=== PATIENT | female | born 1945 | race Caucasian/White ===

== ENCOUNTER → 2017-07-10 | Outpatient (CLI) | payer MEDICARE, BC ==
--- NOTE | 2017-07-11 21:22 | PE ---
EXAMINATION TYPE: PET CT fusion skull to thigh DATE OF EXAM: 07/10/2017 CLINICAL HISTORY: 72-year-old female solitary pulmonary nodule. Patient status post left lung biopsy on 07/20/2017. TECHNIQUE: Following the intravenous administration of 11.8 mCi of F-18 FDG, whole body images are performed from the skull base to the midthigh. Images are reviewed on the computer in the coronal, a xial, and sagittal planes. Reconstructed rotating images are created on independent workstation and reviewed on the computer. A localization and attenuation correction CT is performed in conjunction with the PET scan. Glucose level: 103 mg/dL dose: 11.82 mCi CTDI: 2.66 mGy DLP: 236.61 mGy-cm COMPARISON: None. FINDINGS: PET: Physiologic FDG uptake within the neck with scattered mild muscular activity. 2 foci of moderate FDG uptake are present at the left hilum suggestive of ipsilateral hilar metastati c lymph nodes. Max SUV 4.9. Abnormal pleural-based soft tissue density measuring 2.1 cm peripheral left upper lobe shows intense FDG uptake, max SUV 13.9. There is a second pleural-based posterior left mid lung measures 4.6 x 2.0 cm, max SUV 15.7. Dominant peripheral left lower lobe measures 7.3 x 4.9 cm prominently abutting the pleural surface an d showing an area of central photopenia suggesting central necrosis, max SUV 20.1. The final lesion is also subpleural nodule posterior left base measuring 1.2 cm, max SUV 6.9. ATTENUATION CORRECTION CT: Visualized paranasal sinuses and mastoid air cells appear clear. No cervical lymphadenopathy seen. Heart is borderline enlarged. Mild coronary vessel calcifications are present. Ascending aorta is ec tatic at 3.8 cm. Conventional arch vessel branching anatomy. Borderline to enlarged caliber to the ri ght and left pulmonary arteries and 2.5 and 2.9 cm, respectively, suggesting underlying pulmonary art erial hypertension. Moderate to advanced centrilobular emphysema. No pleural effusion. Calcified right bronchial and rig ht lower lobe nodules compatible prior granulomatous disease. Numerous calcified granulomas within the spleen. 1.6 cm gallstone. No dilated small bowel, free fluid , or free air. No mesenteric or retroperitoneal lymphadenopathy identified. Sigmoid diverticulosis wi thout pericolonic inflammatory change. Bladder is nondistended. Prostate gland measures 4.3 cm wide. No abnormal fluid collection in the pel vis or pelvic lymphadenopathy seen. Bones: Gentle dextroconvex curvature of the lumbar spine. No osseous destructive process identified i n IMPRESSION: 1. Dominant 7.3 cm intensely hypermetabolic, centrally necrotic left lower lobe mass prominently abut ting the pleural surface. 2. 3 ipsilateral satellite nodules/masses are present measuring up to 4.6 cm, one located within the left upper lobe. 3. Two metastatic left hilar lymph nodes. 4. No other metastatic disease. 5. Incidental: Advanced COPD with pulmonary arterial hypertension, prior granulomatous disease, alex lithiasis, and sigmoid diverticulosis.
== END | disposition home or self-care (01) ==
LOC: RADPETMAIN 10:33
PROVIDERS: ATTEND Internal Medicine Critical Care Medicine
DX: R91.8 Other nonspecific abnormal finding of lung field (principal)
CPT/HCPCS: 78815; A9552

== ENCOUNTER → 2017-08-02 | Outpatient (CLI) | payer MEDICARE, BC ==
--- NOTE | 2017-08-02 23:16 | MR ---
EXAMINATION TYPE: MR brain wo/w con DATE OF EXAM: 08/02/2017 COMPARISON: NONE HISTORY: Headaches, lung ca TECHNIQUE: Multiplanar, multisequence images of the brain and brainstem is performed without and with IV contras t, utilizing 6 mL intravenous Gadavist . FINDINGS: Diffusion weighted images demonstrate no evidence of a recent infarct or other diffusion ab normality. There is no worrisome extra-axial fluid collection. There is septum pellucidum vergae not ed. There is ventricular and sulcal prominence consistent with diffuse cerebral atrophy. There are fo leti and confluent areas of T2 hyperintensity seen throughout the deep and periventricular white matte r. Lesions are nonspecific in appearance and distribution most likely on basis of product of chronic small vessel ischemic change in patient of this age. Midline structures demonstrate normal morphology. The craniocervical junction appears within normal limits. Post contrast images demonstrate enhancing oval-shaped lesion measuring 9 x 7 mm left fronta l lobe at level of centrum semiovale on axial image 22 with surrounding vasogenic edema consistent wi th metastatic focus given patient history. Lesion is best seen on coronal image 12 and sagittal image 48. No additional enhancing lesions are present. The dural venous sinuses appear patent. The visuali zed sinuses are clear and the globes are intact. IMPRESSION: 1. Homogeneous intraparenchymal enhancing 9 mm lesion left frontal lobe felt to reflect metastatic fo cus given patient history. Surrounding vasogenic edema noted. 2. There is background mild to moderate diffuse cerebral atrophy and advanced chronic small vessel is chemic change noted.
== END | disposition home or self-care (01) ==
LOC: RADMRIMAIN 16:51
PROVIDERS: ATTEND Internal Medicine Hematology & Oncology
DX: G93.6 Cerebral edema (principal); G31.9 Degenerative disease of nervous system, unspecified; I67.82 Cerebral ischemia; C34.32 Malignant neoplasm of lower lobe, left bronchus or lung
CPT/HCPCS: 70553; A9581

== ENCOUNTER → 2017-09-24 | Outpatient (CLI) | payer MEDICARE, BC ==
[2017-09-24 11:29] LABS: Blood Urea Nitrogen 19 mg/dL (7-17)
--- NOTE | 2017-09-24 14:26 | CT ---
EXAMINATION TYPE: CT ChestAbdPelvis w con DATE OF EXAM: 09/24/2017 COMPARISON: 07/20/2017 and 07/10/2017 HISTORY: Lung CA CT DLP: 519.4 mGycm. Automated Exposure Control for Dose Reduction was Utilized. CONTRAST: CT scan of the thorax, abdomen and pelvis is performed with IV Contrast, patient injected with 100 mL of Omnipaque 300. FINDINGS: LUNGS: There is interval growth of the left pleural-based mass lining the left upper lobe on series 3 image 26 measuring 3.8 x 2.1 cm with erosion of the adjacent lateral margin of the fifth rib. This p reviously measured 2.1 x 1.5 cm on the exam of 2417 the smallest pleural-based mass at the left lung base on image 57 has also increased in the interim now measuring 2.9 x 1.8 cm and previously measurin g up to 1.6 cm. The dominant mass measures approximately 8.2 x 5.6 cm and previously measured 6.6 x 6 .1 cm. This contains numerous areas of low density internally representing necrosis. There is also er osion of the adjacent ninth and eighth posterior lateral ribs. There is extent into the left hilar re gion on image 40 with a soft tissue attenuated area measuring 3.6 x 4.2 cm. Contiguous with this more superiorly but measured as a separate mass on the prior exam there is another pleural-based mass kelly suring 5.9 x 2.1 cm. Findings are superimposed upon extensive centrilobular emphysematous changes with numerous areas of p leural-parenchymal scarring. Within the right upper lobe there is also a new pulmonary nodule measuri ng 4 mm on series 4 image 24. Nodular biapical pleural-parenchymal scarring is also seen, similar to the prior exam. Multiple hilar granulomas are noted. Right lower lobe granulomas are also seen, benig n. Additionally there is a trace left pleural effusion. MEDIASTINUM: The largest left hilar node measures 1.0 cm in short axis. Aorticopulmonary window lymph node measures 1.2 cm in short axis. No axillary adenopathy. Right mainstem pulmonary artery is again noted to be enlarged measuring up to 2.8 cm suggesting underlying pulmonary arterial hypertension. M ild coronary artery calcifications are seen of the left main coronary artery. Incidental note is made of a pectus excavatum deformity. LIVER/GB: 5 mm left hepatic lobe lesion is present on series 3 image 55. Laminated cholelithiasis is again noted. This is not definitively seen on the prior PET CT due to lack of intravenous contrast. PANCREAS: No significant abnormality is seen. SPLEEN: Innumerable benign granulomas are scattered throughout the splenic parenchyma. ADRENALS: No significant abnormality is seen. KIDNEYS: To small to accurately characterize 4 mm left midpole renal lesion is again not well visuali zed on the prior PET/CT due to lack of intravenous contrast. Statistically this represents a renal cy st. BOWEL: Numerous sigmoid diverticula are present without pericolonic fat stranding. Moderate amount re tained stool is seen throughout the nondilated colon.. GENITAL ORGANS: No gross abnormality seen. LYMPH NODES: No greater than 1cm abdominal or pelvic lymph nodes are appreciated. OSSEOUS STRUCTURES: No significant abnormality is seen. VASCULATURE: Abdominal aorta is of normal course and caliber with moderate atherosclerotic changes. IMPRESSION: 1. Progression of disease. Interval enlargement of the for pleural-based masses with extension to the left hilum. Multifocal left posterior lateral rib erosions are similar to the prior exam. 2. New subcentimeter right upper lobe pulmonary nodule. 3. Mildly progressed mediastinal adenopathy in comparison to the prior. 4. Too small to accurately characterize hepatic and left renal lesions not well visualized on the wir e PET/CT given lack of intravenous contrast. These may represent cysts. Attention on follow-up exams.
== END | disposition home or self-care (01) ==
LOC: RADCTMAIN 10:44
PROVIDERS: ATTEND Internal Medicine Hematology & Oncology
DX: C34.32 Malignant neoplasm of lower lobe, left bronchus or lung (principal); R91.1 Solitary pulmonary nodule; R59.0 Localized enlarged lymph nodes
CPT/HCPCS: 82565; 84520; 71260; 74177; 36415; Q9967